=== PATIENT | male | born 1950 | race Caucasian/White ===

== ENCOUNTER 2018-01-12 06:56 | Day surgery (SDC) | payer BC ==
[~2018-01-12] VITALS: Ht 180.3 cm; Wt 74.4 kg
[~2018-01-12 06:56] MED LIST: PROB500T26 PO
[2018-01-12 07:06] VITALS: BP 124/76
[2018-01-12] MEDS ORDERED: VITAMIN E PO (08:11)
[2018-01-12] MEDS ORDERED: SODIUM CHLORIDE 0.9% 1000ML 1,000 ML IV ONE (08:16)
[2018-01-12] MEDS ORDERED: PROPOFOL 10 MG/ML 20ML VIAL IV ONE (08:51)
[2018-01-12 09:12] VITALS: BP 108/51
== END 2018-01-12 09:40 | disposition home or self-care (01) ==
LOC: ENDO 06:56 → DAH 06:56 → ENDO 09:40
PROVIDERS: ATTEND Internal Medicine Gastroenterology
DX: Z12.11 Encounter for screening for malignant neoplasm of colon (principal); D12.3 Benign neoplasm of transverse colon; D12.4 Benign neoplasm of descending colon; D12.5 Benign neoplasm of sigmoid colon; G47.33 Obstructive sleep apnea (adult) (pediatric); Z79.899 Other long term (current) drug therapy; M10.9 Gout, unspecified; Z68.32 Body mass index [BMI] 32.0-32.9, adult; Z98.890 Other specified postprocedural states
CPT/HCPCS: 45380; 45381; 45385; 88305; A4606; A4649; J2704; J7030

== ENCOUNTER → 2020-12-29 | Outpatient (CLI) | payer MEDICARE ==
[~2020-12-29] MED LIST changes: +VITAMIN E PO
== END | disposition home or self-care (01) ==
LOC: RAH 07:59
PROVIDERS: ATTEND Internal Medicine
DX: K57.30 Diverticulosis of large intestine without perforation or abscess without bleeding (principal); R63.4 Abnormal weight loss
CPT/HCPCS: 71250; 74176